=== PATIENT | male | born 1985 | race Caucasian/White ===

== ENCOUNTER 2020-10-31 15:11 | Emergency (ER) | payer BC ==
[~2020-10-31 15:11] MED LIST: NAPROSYN500 MG PO
[2020-10-31] MEDS ORDERED: OMEPRAZOLE20 M2 PO (22:52)
[2020-10-31] MEDS ORDERED: ONDANSETRON ODT4 MG SL (22:52)
== END 2020-10-31 16:00 | disposition left against medical advice (07) ==
LOC: ER1 15:11
DX: Z53.21 Procedure and treatment not carried out due to patient leaving prior to being seen by health care provider (principal)

== ENCOUNTER 2020-10-31 19:21 | Emergency (ER) | payer BC, OTHER ==
[2020-10-31 20:27] LABS: HEMOGLOBIN 14.9 gm/dl (14.0-17.5); RED BLOOD COUNT 4.34 M/UL (4.20-5.50); WHITE BLOOD COUNT 7.2 K/UL (4.5-11.0)
[2020-10-31 20:34] LABS: BUN/CREATININE RATIO 10 (0-10)
[2020-10-31] MEDS ORDERED: ONDANSETRON ODT4 MG SL (22:52)
[2020-10-31] MEDS ORDERED: OMEPRAZOLE20 M2 PO (22:52)
== END 2020-10-31 23:22 | disposition home or self-care (01) ==
LOC: ER1 19:21
PROVIDERS: Physician Assistant
DX: R10.11 Right upper quadrant pain (principal); F41.0 Panic disorder [episodic paroxysmal anxiety]; Z20.822 Contact with and (suspected) exposure to COVID-19; R11.2 Nausea with vomiting, unspecified; F17.200 Nicotine dependence, unspecified, uncomplicated; Z79.899 Other long term (current) drug therapy
CPT/HCPCS: 80053; 81001; 83690; 85025; 93005; 99284; Q0177; Q9967; U0002